=== PATIENT | female | born 1985 | race Caucasian/White ===

== ENCOUNTER 2017-04-16 20:06 | Inpatient (IN) | payer OTHER ==
[~2017-04-16] VITALS: Ht 157.5 cm; Wt 64.0 kg
[2017-04-16] MEDS: D5%-LACTATED RINGERS 1,000 ML IV SCH (20:50)
[2017-04-16] MEDS ORDERED: OXYTOCIN 30U/ 0.9% NaCL 500ML 500 ML IV ONE (20:50)
[2017-04-16] MEDS ORDERED: OXYTOCIN 30U/ 0.9% NaCL 500ML 500 ML IV PRN (20:50)
[2017-04-16] MEDS ORDERED: SODIUM CITRATE/CITRIC ACID 30 ML UDC PO PRN (21:00)
[2017-04-16] MEDS ORDERED: METOCLOPRAMIDE 5 MG/ML, 2ML IVPush PRN (21:00)
[2017-04-16] MEDS ORDERED: CALCIUM CARBONATE 500 MG TAB.CHEW PO PRN (21:00)
[2017-04-16] MEDS ORDERED: FENTANYL PF 100 MCG/2ML IV PRN (21:00)
[2017-04-16] MEDS ORDERED: FENTANYL PF 100 MCG/2ML IVPush PRN (21:00)
[2017-04-16] MEDS: LACTATED RINGERS 1,000 ML IV SCH ×2 (21:32→22:02)
[2017-04-16] MEDS ORDERED: LIDOCAINE/PF 1.5%-EPI 1:200K, 30ML ONE (21:51)
[2017-04-16] MEDS ORDERED: FENTANYL/BUPIV./NS/PF 250 ML EPIDCONT ONE (21:51)
[2017-04-16] MEDS ORDERED: OXYTOCIN 30U/ 0.9% NaCL 500ML 500 ML ONE (21:57)
[2017-04-16] MEDS ORDERED: NEWBORN KIT ONE (21:57)
[2017-04-16] MEDS ORDERED: FENTANYL/BUPIV./NS/PF 250 ML EPIDCONT SCH (22:56)
[2017-04-16] MEDS ORDERED: EPHEDRINE 50 MG/ML, 1ML IVPush PRN (23:00)
[2017-04-16] MEDS ORDERED: NALOXONE 0.4 MG/ML, 1ML IVPush PRN (23:00)
[2017-04-16] MEDS ORDERED: LACTATED RINGERS 1,000 ML IVBOLUS PRN (23:00)
[2017-04-17] MEDS: LACTATED RINGERS 1,000 ML IV SCH ×2 (03:47→06:56)
[2017-04-17] MEDS: OXYTOCIN 30U/ 0.9% NaCL 500ML 500 ML IV SCH ×2 (04:29→14:29)
[2017-04-17] MEDS ORDERED: GLYCERIN ADULT SUPP PR PRN (04:30)
[2017-04-17] MEDS ORDERED: MISOPROSTOL 200 MCG TABLET PR PRN (04:30)
[2017-04-17] MEDS ORDERED: CARBOPROST TROMETHAMINE 250 MCG/ML, 1ML IM PRN (04:30)
[2017-04-17] MEDS ORDERED: OXYcodone/APAP 5/325MG TABLET PO PRN (04:30)
[2017-04-17] MEDS ORDERED: OXYcodone IR 5MG TABLET PO PRN (04:30)
[2017-04-17] MEDS ORDERED: ONDANSETRON 2MG/ML, 2ML IV PRN (04:30)
[2017-04-17] MEDS ORDERED: METHYLERGONOVINE 0.2 MG/ML IM PRN (04:30)
[2017-04-17] MEDS ORDERED: ACETAMINOPHEN 325 MG TABLET PO PRN ×2 (04:30)
[2017-04-17] MEDS ORDERED: BISACODYL 10 MG SUPP PR PRN (04:30)
[2017-04-17] MEDS: D5%-LACTATED RINGERS 1,000 ML IV SCH (04:50)
[2017-04-17 06:30] VITALS: BP 106/71
[2017-04-17] MEDS: IBUPROFEN 600 MG TABLET PO PRN ×3 (07:35→19:46)
[2017-04-17] MEDS: PRENATAL VIT/IRON/FA 1 EACH TABLET PO SCH (10:16)
[2017-04-17] MEDS: DOCUSATE 100 MG CAPSULE PO PRN ×2 (10:16→19:47)
[2017-04-17 12:00] VITALS: BP 111/72
[2017-04-17 15:51] VITALS: BP 110/74
[2017-04-17] MEDS: OXYcodone/APAP 5/325MG TABLET PO PRN (19:49)
[2017-04-17 20:15] VITALS: BP 122/81
[2017-04-18] MEDS: OXYTOCIN 30U/ 0.9% NaCL 500ML 500 ML IV SCH ×3 (00:29→20:29)
[2017-04-18] MEDS: OXYcodone/APAP 5/325MG TABLET PO PRN ×5 (01:30→23:39)
[2017-04-18 01:40] VITALS: BP 114/79
[2017-04-18] MEDS: IBUPROFEN 600 MG TABLET PO PRN ×3 (06:46→18:28)
[2017-04-18 07:45] VITALS: BP 111/86
[2017-04-18] MEDS: DOCUSATE 100 MG CAPSULE PO PRN ×2 (08:59→23:39)
[2017-04-18] MEDS: PRENATAL VIT/IRON/FA 1 EACH TABLET PO SCH (08:59)
[2017-04-18] MEDS ORDERED: IBUP-1222 PO (10:44)
[2017-04-18] MEDS ORDERED: DOCU-30 PO (10:45)
[2017-04-18] MEDS ORDERED: OXYC-302 PO (10:45)
[2017-04-18 19:37] VITALS: BP 112/76
[2017-04-19] MEDS: IBUPROFEN 600 MG TABLET PO PRN ×2 (04:52→13:03)
[2017-04-19] MEDS: OXYcodone/APAP 5/325MG TABLET PO PRN ×3 (04:52→13:03)
[2017-04-19] MEDS: OXYTOCIN 30U/ 0.9% NaCL 500ML 500 ML IV SCH (06:29)
[2017-04-19 08:02] VITALS: BP 122/87
[2017-04-19] MEDS: DOCUSATE 100 MG CAPSULE PO PRN (09:07)
[2017-04-19] MEDS: PRENATAL VIT/IRON/FA 1 EACH TABLET PO SCH (09:07)
== END 2017-04-19 13:15 | disposition home or self-care (01) | DRG 775 ==
LOC: LDOP 20:06 → LDIP 20:48 → 2NW 04-17 06:03
PROVIDERS: ADMIT Obstetrics & Gynecology; ATTEND Obstetrics & Gynecology
PROC: 10E0XZZ Delivery of Products of Conception, External Approach (ICD-10-PCS; principal; 2017-04-16)
PROC: 0KQM0ZZ Repair Perineum Muscle, Open Approach (ICD-10-PCS; 2017-04-16)
PROC: 10907ZC Drainage of Amniotic Fluid, Therapeutic from Products of Conception, Via Natural or Artificial Opening (ICD-10-PCS; 2017-04-16)
PROC: 00HU33Z Insertion of Infusion Device into Spinal Canal, Percutaneous Approach (ICD-10-PCS; 2017-04-16)
PROC: 3E0R3CZ (ICD-10-PCS; 2017-04-16)
DX: O99.52 Diseases of the respiratory system complicating childbirth (principal); J45.909 Unspecified asthma, uncomplicated; K08.409 Partial loss of teeth, unspecified cause, unspecified class; O70.1 Second degree perineal laceration during delivery; Z37.0 Single live birth; Z87.59 Personal history of other complications of pregnancy, childbirth and the puerperium; Z88.1 Allergy status to other antibiotic agents; Z3A.40 40 weeks gestation of pregnancy
CPT/HCPCS: 36415; 85025; 86850; 86900; J2590; J3010; J7120

== ENCOUNTER 2018-11-26 18:53 | Inpatient (IN) | payer OTHER ==
[~2018-11-26] VITALS: Ht 160 cm; Wt 62.0 kg
[~2018-11-26 18:53] MED LIST: DOCU-131 PO; IBUP-1222 PO; OXYC-302 PO
[2018-11-26] MEDS ORDERED: D5%-LACTATED RINGERS 1,000 ML IV SCH (21:11)
[2018-11-26] MEDS ORDERED: OXYTOCIN 30U/ 0.9% NaCL 500ML 500 ML IV ONE (21:11)
[2018-11-26] MEDS ORDERED: FENTANYL/BUPIV./NS/PF 250 ML EPIDCONT ONE ×3 (21:12→21:50)
[2018-11-26] MEDS ORDERED: OXYTOCIN 30U/ 0.9% NaCL 500ML 500 ML ONE ×2 (21:13→22:52)
[2018-11-26] MEDS ORDERED: NEWBORN KIT ONE (21:13)
[2018-11-26] MEDS ORDERED: MISOPROSTOL 200 MCG TABLET ONE (21:13)
[2018-11-26] MEDS ORDERED: LIDOCAINE 1%, 20ML ONE (21:13)
[2018-11-26] MEDS ORDERED: FENTANYL PF 100 MCG/2ML ONE (21:20)
[2018-11-26] MEDS: LACTATED RINGERS 1,000 ML IV SCH ×2 (21:24→21:49)
[2018-11-26] MEDS ORDERED: CALCIUM CARBONATE 500 MG TAB.CHEW PO PRN (21:30)
[2018-11-26] MEDS ORDERED: FENTANYL PF 100 MCG/2ML IVPush PRN (21:30)
[2018-11-26] MEDS ORDERED: ONDANSETRON 2MG/ML, 2ML IVPush PRN (21:30)
[2018-11-26] MEDS ORDERED: FENTANYL PF 100 MCG/2ML IV PRN (21:30)
[2018-11-26] MEDS ORDERED: TERBUTALINE 1 MG/ML, 1ML IVPush PRN (21:30)
[2018-11-26 21:42] LABS: BASOPHILS # (AUTO) 0.03 x10^3/uL (0-0.1); BASOPHILS % (AUTO) 0 % (0-1); EOSINOPHILS % (AUTO) 1 % (1-7); LYMPHOCYTES # (AUTO) 2.04 x10^3/uL (1-3.4); LYMPHOCYTES % (AUTO) 19 % (22-44); MD NO; MEAN CORPUSCULAR HEMOGLOBIN 30.6 pg (27.0-34.8); MEAN CORPUSCULAR HGB CONC 33.7 g/dL (32.4-35.8); MEAN CORPUSCULAR VOLUME 90.7 fL (80-100); MEAN PLATELET VOLUME 8.8 fL (7.4-10.4); MONOCYTES # (AUTO) 0.77 x10^3/uL (0.2-0.8); MONOCYTES % (AUTO) 7 % (2-9); NEUTROPHILS # (AUTO) 7.75 x10^3/uL (1.8-6.8); NEUTROPHILS % (AUTO) 73 % (42-75); PLATELET COUNT 265 x10^3/uL (130-400); RED BLOOD COUNT 4.06 x10^6/uL (3.82-5.3); RED CELL DISTRIBUTION WIDTH 13.4 % (9.6-15.2)
[2018-11-26] MEDS ORDERED: BUPIVACAINE 0.25% ONE (21:43)
[2018-11-26] MEDS ORDERED: LIDOCAINE/PF 1.5%-EPI 1:200K, 30ML ONE (21:50)
[2018-11-26] MEDS ORDERED: FENTANYL/BUPIV./NS/PF 250 ML EPIDCONT SCH (22:10)
[2018-11-26] MEDS ORDERED: LACTATED RINGERS 1,000 ML IV SCH (22:10)
[2018-11-26] MEDS ORDERED: LACTATED RINGERS 1,000 ML IVBOLUS PRN (22:30)
[2018-11-26] MEDS: OXYTOCIN 30U/ 0.9% NaCL 500ML 500 ML IV SCH (22:55)
[2018-11-26] MEDS ORDERED: MISOPROSTOL 200 MCG TABLET PR PRN (23:00)
[2018-11-26] MEDS ORDERED: METHYLERGONOVINE 0.2 MG/ML IM PRN (23:00)
[2018-11-26] MEDS ORDERED: CARBOPROST TROMETHAMINE 250 MCG/ML, 1ML IM PRN (23:00)
[2018-11-26] MEDS ORDERED: ACETAMINOPHEN 325 MG TABLET PO PRN (23:00)
[2018-11-26] MEDS ORDERED: ONDANSETRON 2MG/ML, 2ML IV PRN (23:00)
[2018-11-26] MEDS ORDERED: OXYcodone IR 5MG TABLET PO PRN (23:00)
[2018-11-26] MEDS ORDERED: IBUPROFEN 600 MG TABLET ONE (23:23)
[2018-11-26] MEDS: IBUPROFEN 600 MG TABLET PO PRN (23:24)
[2018-11-27 00:10] VITALS: BP 110/72
[2018-11-27] MEDS: OXYcodone/APAP 5/325MG TABLET PO PRN ×2 (00:34→08:44)
[2018-11-27 04:45] VITALS: BP 106/68
[2018-11-27] MEDS: IBUPROFEN 600 MG TABLET PO PRN ×4 (05:26→23:43)
[2018-11-27 07:00] LABS: MEAN CORPUSCULAR HEMOGLOBIN 30.2 pg (27.0-34.8); MEAN CORPUSCULAR HGB CONC 33.1 g/dL (32.4-35.8); MEAN CORPUSCULAR VOLUME 91.1 fL (80-100); MEAN PLATELET VOLUME 8.5 fL (7.4-10.4); PLATELET COUNT 236 x10^3/uL (130-400); RED BLOOD COUNT 3.76 x10^6/uL (3.82-5.3); RED CELL DISTRIBUTION WIDTH 13.4 % (9.6-15.2)
[2018-11-27 08:19] LABS: BASOPHILS # (AUTO) 0.03 x10^3/uL (0-0.1); BASOPHILS % (AUTO) 0 % (0-1); EOSINOPHILS # (AUTO) 0.03 x10^3/uL (0-0.4); EOSINOPHILS % (AUTO) 0 % (1-7); LYMPHOCYTES # (AUTO) 1.23 x10^3/uL (1-3.4); LYMPHOCYTES % (AUTO) 9 % (22-44); MD SCAN; MONOCYTES # (AUTO) 0.93 x10^3/uL (0.2-0.8); MONOCYTES % (AUTO) 6 % (2-9); NEUTROPHILS # (AUTO) 12.28 x10^3/uL (1.8-6.8); NEUTROPHILS % (AUTO) 85 % (42-75)
[2018-11-27 08:40] VITALS: BP 114/74
[2018-11-27] MEDS: PRENATAL VIT/IRON/FA 1 EACH TABLET PO SCH (08:44)
[2018-11-27] MEDS: DOCUSATE 100 MG CAPSULE PO PRN ×2 (08:44→23:43)
[2018-11-27] MEDS: OXYTOCIN 30U/ 0.9% NaCL 500ML 500 ML IV SCH ×2 (08:48→18:48)
[2018-11-27 12:30] VITALS: BP 102/62
[2018-11-27 17:08] VITALS: BP 111/72
[2018-11-27 19:40] VITALS: BP 115/75
[2018-11-27] MEDS ORDERED: MEASLES,MUMPS&RUBELLA VACC/PF 0.5 ML SQ-VACC ONE (23:37)
[2018-11-28] MEDS ORDERED: MEASLES,MUMPS&RUBELLA VACC/PF 0.5 ML SQ-VACC ONE
[2018-11-28] MEDS: OXYTOCIN 30U/ 0.9% NaCL 500ML 500 ML IV SCH (04:48)
[2018-11-28 07:40] VITALS: BP 114/80
[2018-11-28] MEDS: PRENATAL VIT/IRON/FA 1 EACH TABLET PO SCH (07:46)
[2018-11-28] MEDS: DOCUSATE 100 MG CAPSULE PO PRN (07:46)
[2018-11-28] MEDS: IBUPROFEN 600 MG TABLET PO PRN (07:46)
[2018-11-28] MEDS ORDERED: SENN-92 PO (11:49)
== END 2018-11-28 13:14 | disposition home or self-care (01) | DRG 807 ==
LOC: LDOP 18:53 → LDIP 21:23 → 2NW 11-27 00:07
PROVIDERS: ADMIT Obstetrics & Gynecology; ATTEND Obstetrics & Gynecology
PROC: 10E0XZZ Delivery of Products of Conception, External Approach (ICD-10-PCS; principal; 2018-11-26)
PROC: 0HQ9XZZ Repair Perineum Skin, External Approach (ICD-10-PCS; 2018-11-26)
PROC: 3E0R3BZ Introduction of Anesthetic Agent into Spinal Canal, Percutaneous Approach (ICD-10-PCS; 2018-11-26)
PROC: 00HU33Z Insertion of Infusion Device into Spinal Canal, Percutaneous Approach (ICD-10-PCS; 2018-11-26)
DX: O69.81X0 Labor and delivery complicated by cord around neck, without compression, not applicable or unspecified (principal); Z37.0 Single live birth; O62.3 Precipitate labor; O70.0 First degree perineal laceration during delivery; O76 Abnormality in fetal heart rate and rhythm complicating labor and delivery; Z3A.40 40 weeks gestation of pregnancy; J45.909 Unspecified asthma, uncomplicated; O99.52 Diseases of the respiratory system complicating childbirth; Z88.8 Allergy status to other drugs, medicaments and biological substances
CPT/HCPCS: 36415; 85025; 86850; 86900; G0378; J3010; J3490; J2590; J7120